=== PATIENT | male | born 1990 | race Caucasian/White ===

== ENCOUNTER → 2018-01-08 19:54 | Outpatient (CLI) | payer MEDICAID, SELFPAY | PROVIDERS: Family Provider Pediatrics; PCP Pediatrics; Visit Provider Psychiatry & Neurology Psychiatry | DX: G47.33 Obstructive sleep apnea (adult) (pediatric) (principal) | CPT/HCPCS: 95810 ==

== ENCOUNTER → 2021-03-13 07:06 | Outpatient (CLI) | payer MEDICAID, SELFPAY ==
--- NOTE | 2021-03-13 07:11 | CT_ITS ---
STUDY: CTA HEAD AND NECK WITH CONTRAST REASON FOR EXAM: Male, 30 years old. Epidural hematoma/carotid dissection -- COMMENT ON HEAD CT PORTION IN IMPRESSION PLEASE! RADIATION DOSAGE (If Supplied By Facility): CTDIvol = ( 28.01 ) mGy, DLP = ( 1563.56 ) mGycm TECHNIQUE: CT angiography was performed with a multi-detector CT scanner. Data acquisition was obtained from the skull base through the vertex following intravenous administration of IV 100mL Isovue-370. MIP images were reconstructed from the axial data set. Post-processing of the angiographic images was performed, with multiplanar reformation and 3D reconstruction. Individualized dose optimization techniques were used for this CT. COMPARISON: No relevant priors. FINDINGS: Normal bilateral petrous carotid arteries. Normal right cavernous carotid artery with a normal supraclinoid bifurcation. Normal left cavernous carotid artery with a normal supraclinoid bifurcation. Normal right A1 segments of the anterior cerebral artery. Normal left A1 segments of the anterior cerebral artery. Normal intact anterior communicating artery (ACOM). Normal bilateral A2 segments of the anterior cerebral arteries. Normal right M1 and M2 segments of the middle cerebral arteries, with a normal M1 bifurcation. Normal left M1 and M2 segments of the middle cerebral arteries, with a normal M1 bifurcation. Normal right posterior communicating artery (PCOM). Normal left posterior communicating artery (PCOM). Normal bilateral vertebral arteries. Normal basilar artery with a normal basilar bifurcation. The visualized bilateral superior cerebellar (SCA) arteries are normal. Normal bilateral P1, P2 and visualized P3 segments of the posterior cerebral arteries. There is no demonstrated aneurysm of the [place]. There is evidence of a focal encephalomalacia in the posterior aspect of the right temporal lobe adjacent to the petrous ridge. There is evidence of prior right parietal craniotomy. There is evidence of an old fracture of the superior aspect of the right frontal bone extending into the anterior left frontal bone. There is evidence of a depressed skull fracture along the posterior aspect of the right parietal bone. AORTIC ARCH: Normal visualized aortic arch. Normal origins of the brachiocephalic, left common carotid, and left subclavian arteries. RIGHT CAROTID ARTERIES: Normal right common carotid artery (CCA). Normal right common carotid bulb. Normal origin of the right internal carotid (ICA) artery without a hemodynamically significant stenosis. Normal visualized cervical portion of the right internal carotid artery. Normal origin of the right external carotid artery (ECA). LEFT CAROTID ARTERIES: Normal left common carotid artery (CCA). Normal left common carotid bulb. Normal origin of the left internal carotid (ICA) artery without a hemodynamically significant stenosis. Normal visualized cervical portion of the left internal carotid artery. Normal origin of the left external carotid artery (ECA). VERTEBRAL ARTERIES: There is enhancement within the bilateral vertebral arteries with a small left vertebral artery, and a dominant right vertebral artery. CT/CTA Head AND Neck W/ Contrast IMPRESSION: Normal CTA Head and neck with contrast. Depressed skull fracture of the right parietal bone with fractures through the right and left frontal bones anteriorly. Focal encephalomalacia in the posterior aspect of the right temporal lobe. Electronically Signed: Lv Rojas MD at 8:17 EDT , Service support ,
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
== END ==
PROVIDERS: PCP Family Medicine; Referring Provider Psychiatry & Neurology Neurology; Visit Provider Psychiatry & Neurology Neurology
DX: S12.9XXA Fracture of neck, unspecified, initial encounter (principal); S06.4X9A Epidural hemorrhage with loss of consciousness of unspecified duration, initial encounter; I77.71 Dissection of carotid artery
CPT/HCPCS: 70496; 70498; 72125; Q9967

== ENCOUNTER 2021-09-03 15:11 | Outpatient (CLI) | payer MEDICAID, SELFPAY ==
[2021-09-03 18:07] LABS: Hematocrit 46.2 % (40-54); Hemoglobin 15.5 g/dL (13.0-16.5); Mean Corp Hgb Conc 33.5 g/dL (32-36); Mean Corpuscular Hgb 30.8 pg (27.0-32.0); Mean Corpuscular Volume 91.8 fL (80-94); Mean Platelet Vol. 12.1 fl (6.2-12.0); Platelet Count 293 K/mm3 (150-450); RBC Distribution Width CV 12.1 % (11.6-14.6); RBC Distribution Width SD 40.6 fl (35.1-43.9); Red Blood Count 5.03 M/mm3 (4.6-6.2); White Blood Count 6.7 K/mm3 (4.4-11.0)
[2021-09-03 18:35] LABS: Vitamin B12 389 pg/mL (211-911)
[2021-09-03 18:51] LABS: ALB/GLOB Ratio 1.1 RATIO (0.9-2.4); AST(SGOT) 15 U/L (15-37); Alanine Aminotransfer ALT/SGPT 35 U/L (16-61); Albumin, Serum 4.1 g/dL (3.2-5.0); Alkaline Phosphatase 92 U/L (45-117); Anion Gap 4 (5-15); BUN 7 mg/dL (7-18); BUN/Creat Ratio 6.4 RATIO (10-20); Calcium,Total 9.2 mg/dL (8.5-10.1); Chloride 106 mmol/L (98-107); EST Glomerular Filtration Rate 82 mL/min (>60); Est Glom Filt Rate - Afr Amer 100 mL/min (>60); Globulin 3.9 g/dL (2.2-4.2); Glucose 62 mg/dL (74-106); Potassium 3.3 mmol/L (3.5-5.1); Sodium Level 142 mmol/L (136-145); Thyroid Stim Hormone (TSH) 1.36 uIU/mL (0.358-3.74)
[2021-09-12 21:20] LABS: Vitamin B1, Thiamine 180.5 nmol/L (66.5-200.0)
== END 2021-09-03 23:59 | disposition home or self-care (01) ==
LOC: MTLAB 15:12
PROVIDERS: PCP Family Medicine; Referring Provider Psychiatry & Neurology Neurology; Visit Provider Psychiatry & Neurology Neurology
DX: R41.3 Other amnesia (principal); S06.9X9A Unspecified intracranial injury with loss of consciousness of unspecified duration, initial encounter
CPT/HCPCS: 36415; 80053; 82607; 82746; 84425; 84443; 85027

== ENCOUNTER 2021-09-21 12:34 | Outpatient (CLI) | payer MEDICAID, SELFPAY ==
[2021-09-21 15:40] LABS: Anion Gap 5 (5-15); BUN 19 mg/dL (7-18); BUN/Creat Ratio 18.8 RATIO (10-20); Calcium,Total 9.5 mg/dL (8.5-10.1); Chloride 107 mmol/L (98-107); Creatinine, Serum 1.01 mg/dL (0.70-1.30); EST Glomerular Filtration Rate 91 mL/min (>60); Est Glom Filt Rate - Afr Amer 110 mL/min (>60); Glucose 95 mg/dL (74-106); Potassium 4.2 mmol/L (3.5-5.1); Sodium Level 141 mmol/L (136-145)
== END 2021-09-21 23:59 | disposition home or self-care (01) ==
LOC: MTLAB 12:35
PROVIDERS: PCP Family Medicine; Referring Provider Nurse Practitioner Family; Visit Provider Nurse Practitioner Family
DX: E87.6 Hypokalemia (principal); E16.2 Hypoglycemia, unspecified
CPT/HCPCS: 36415; 80048

== ENCOUNTER 2021-10-03 13:08 | Outpatient (CLI) | payer MEDICAID, SELFPAY ==
[2021-10-03 15:17] LABS: Anion Gap 4 (5-15); BUN 15 mg/dL (7-18); BUN/Creat Ratio 14.6 RATIO (10-20); Calcium,Total 9.1 mg/dL (8.5-10.1); Chloride 106 mmol/L (98-107); Creatinine, Serum 1.03 mg/dL (0.70-1.30); EST Glomerular Filtration Rate 89 mL/min (>60); Est Glom Filt Rate - Afr Amer 107 mL/min (>60); Glucose 92 mg/dL (74-106); Potassium 3.5 mmol/L (3.5-5.1); Sodium Level 141 mmol/L (136-145)
== END 2021-10-03 23:59 | disposition home or self-care (01) ==
LOC: MTLAB 13:09
PROVIDERS: PCP Family Medicine; Referring Provider Nurse Practitioner Family; Visit Provider Nurse Practitioner Family
DX: E87.6 Hypokalemia (principal); E16.2 Hypoglycemia, unspecified
CPT/HCPCS: 36415; 80048

== ENCOUNTER 2021-12-19 14:30 | Outpatient (RCR) | payer MEDICAID, SELFPAY ==
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
--- NOTE | 2022-03-12 13:26 | HP.SP.DC_ITS ---
ST Discharge Summary - Discharged: Discharge: Dariel Caraballo is discharged from [facility] as he reported he was doing well at home. Standardized testing showed borderline normal results for cognitive function. He was able to complete all tasks in therapy as long as he was given extra processing time. He has visual deficits and slow processing which is why he is not driving at this time. Patient is discharged with instructions to continue using recall strategies and completing home tasks. He was able to use strategies for recall effectively with minimal cues. He was treated for 7 sessions with his initial evaluation on 09/12/21. Further therapy may be warranted if the patient returns to work and demonstrates cognitive deficits at that time. Thank you for allowing me to participate in the care of this patient.
== END 2021-12-19 19:00 | disposition home or self-care (01) ==
LOC: SP 14:30
PROVIDERS: PCP Family Medicine; Referring Provider Nurse Practitioner Family; Visit Provider Nurse Practitioner Family
DX: S06.9X9D Unspecified intracranial injury with loss of consciousness of unspecified duration, subsequent encounter (principal); X58.XXXD Exposure to other specified factors, subsequent encounter; R47.01 Aphasia; S01.90XD Unspecified open wound of unspecified part of head, subsequent encounter
CPT/HCPCS: 92507; 92523